=== PATIENT | male | born 1970 | race Caucasian/White ===

== ENCOUNTER 2017-07-07 17:47 | Inpatient (IN) | payer OTHER ==
[~2017-07-07] VITALS: Ht 172.7 cm; Wt 88.1 kg
[2017-07-07 19:20] LABS: Eosinophils # (auto) 0.2 uL; Nucleated Red Blood Cells % 0.1 %
[2017-07-07 19:23] LABS: Basophils # (auto) 0 uL; Basophils % (auto) 0.4 % (0.0-2.0); Eosinophils % (auto) 2.7 % (0.0-7.0); Hemoglobin 16.6 g/dL (13.5-17.5); Lymphocytes # (auto) 2.1 uL; Lymphocytes % (auto) 24.6 % (10.0-50.0); Mean Corpuscular Hemoglobin 34.4 pg (28.0-32.0); Mean Corpuscular Hgb Conc. 35.3 g/dL (32.0-36.0); Mean Corpuscular Volume 97.5 fL (80.0-100.0); Monocytes # (auto) 0.6 uL; Monocytes % (auto) 6.9 % (0.0-12.0); Neutrophils # (auto) 5.7 uL; Neutrophils % (auto) 65.4 % (37.0-80.0); Platelet Count (auto) 218 10^3/uL (140-450); Red Blood Cells 4.82 10^6/uL (4.5-5.90); Red Cell Distribution Width 12.5 % (11.8-14.3); White Blood Cell 8.7 10^3/uL (4.4-10.8)
[2017-07-07 19:44] LABS: Alanine Aminotransferase 53 U/L (16-61); Albumin 4.2 g/dL (3.4-5.0); Alkaline Phosphatase 74 U/L (45-117); Anion Gap 4 (5-15); Aspartate Aminotransferase 24 U/L (15-37); Bilirubin, Total 0.3 mg/dL (0.2-1.0); Blood Urea Nitrogen 17 mg/dL (7-18); Carbon Dioxide 28 mmol/L (21-32); Chloride 107 mmol/L (98-107); GFR African American 89 mL/min; GFR Non-African American 74 mL/min; Glucose 97 mg/dL (74-106); Potassium 4.3 mmol/L (3.5-5.1); Sodium 139 mmol/L (136-145); Total Protein 7.4 g/dL (6.4-8.2)
[2017-07-07] MEDS ORDERED: ASPirin 325 MG TAB PO ONE (19:45)
[2017-07-07] MEDS ORDERED: IOHEXOL 350 MG/ML 100ML IJ ONE (22:24)
[2017-07-08] MEDS ORDERED: ACETAMINOPHEN 500 MG TAB PO PRN
[2017-07-08] MEDS ORDERED: LORazepam 2MG/ML-1ML VIAL IV PRN
[2017-07-08] MEDS ORDERED: ONDANSETRON HCL 4 MG/2 ML VIAL IV PRN
[2017-07-08] MEDS ORDERED: HYDROcodone-ACET 5/325MG TAB PO PRN
[2017-07-08] MEDS ORDERED: chlordiazePOXIDE HCL 25 MG CAP PO PRN
[2017-07-08 09:00] VITALS: BP 131/81
[2017-07-08] MEDS ORDERED: METOPROLOL TARTRATE 50 MG TAB PO PRN (09:00)
[2017-07-08] MEDS: THIAMINE HCL 100 MG TAB PO SCH (09:47)
[2017-07-08] MEDS: FOLIC ACID 1 MG TAB PO SCH (09:47)
[2017-07-08] MEDS: MULTIPLE VITAMIN TAB PO SCH (09:48)
[2017-07-08] MEDS: ASPirin-EC 81 mg tab PO SCH (09:48)
[2017-07-08] MEDS: METOPROLOL TARTRATE 25 MG TAB PO SCH ×3 (09:49→22:08)
[2017-07-08] MEDS ORDERED: THIAMINE HCL 100 MG/ML 2ML VIAL IV SCH (10:00)
[2017-07-08 13:00] VITALS: BP 127/85
[2017-07-08] MEDS ORDERED: BUSP5TAB51 PO (14:22)
[2017-07-08] MEDS ORDERED: LORA-655 PO (14:24)
[2017-07-08] MEDS ORDERED: BISO5TAB44 PO (14:24)
[2017-07-08] MEDS: SODIUM CHLORIDE 0.9% 1,000 ML IV SCH (17:15)
[2017-07-08 17:26] VITALS: BP 134/83
[2017-07-08 18:00] VITALS: BP 147/100
[2017-07-08] MEDS ORDERED: ATORVASTATIN 20 MG TAB PO SCH (22:00)
[2017-07-09] MEDS: SODIUM CHLORIDE 0.9% 1,000 ML IV SCH (03:15)
[2017-07-09 05:00] VITALS: BP 118/75
[2017-07-09 06:11] LABS: Cholesterol 191 mg/dL (< 200); HDL Cholesterol 43 mg/dL (40-59); LDL Cholesterol 132 mg/dL (< 100); Triglycerides 175 mg/dL (< 150)
[2017-07-09] MEDS ORDERED: NITROGLYCERIN 0.4 MG SL TAB SL ONE (08:27)
[2017-07-09] MEDS ORDERED: METOPROLOL TARTRATE 1MG/1ML-5ML VIAL IV ONE (08:27)
[2017-07-09] MEDS ORDERED: IOHEXOL 350 MG/ML 100ML IJ ONE (08:40)
[2017-07-09 09:00] VITALS: BP 131/85
[2017-07-09] MEDS: MULTIPLE VITAMIN TAB PO SCH (10:00)
[2017-07-09] MEDS: ASPirin-EC 81 mg tab PO SCH (10:00)
[2017-07-09] MEDS: METOPROLOL TARTRATE 25 MG TAB PO SCH (10:00)
[2017-07-09] MEDS: THIAMINE HCL 100 MG TAB PO SCH (10:00)
[2017-07-09] MEDS: FOLIC ACID 1 MG TAB PO SCH (10:00)
== END 2017-07-09 11:00 | disposition left against medical advice (07) | DRG 311 ==
LOC: ER 17:52 → TELE 17:53 → TELE-WESTW 07-08 09:16
PROVIDERS: ADMIT Nurse Practitioner Family; ATTEND Internal Medicine
DX: I20.0 Unstable angina (principal); F10.10 Alcohol abuse, uncomplicated; F17.210 Nicotine dependence, cigarettes, uncomplicated; Z53.21 Procedure and treatment not carried out due to patient leaving prior to being seen by health care provider; I10 Essential (primary) hypertension; F41.9 Anxiety disorder, unspecified; R22.2 Localized swelling, mass and lump, trunk; Z88.0 Allergy status to penicillin; Z71.6 Tobacco abuse counseling
CPT/HCPCS: 36415; 71046; 71275; 80053; 80061; 83880; 84484; 85025; 93005; 93306; 96374